=== PATIENT | male | born 1965 | race Caucasian/White ===

== ENCOUNTER 2019-09-01 13:27 | Outpatient (CLI) | payer OTHER ==
--- NOTE | 2019-09-01 14:49 | CT ---
BRAIN CT WITHOUT IV CONTRAST: Date: 09/01/2019 HISTORY: Headache, memory loss, forgetfulness. FINDINGS: No focal mass or midline shift. No intra or extra-axial hemorrhage. Sinuses and mastoids demonstrate no significant acute process. IMPRESSION: No mass or bleed, or other acute process. POS: [facility]
== END 2019-09-01 13:28 | disposition home or self-care (01) ==
LOC: BICCT 13:27
PROVIDERS: ATTEND Internal Medicine
DX: R41.3 Other amnesia (principal)
CPT/HCPCS: 70450